=== PATIENT | male | born 1965 | race Caucasian/White ===

== ENCOUNTER 2018-04-04 03:38 | Observation (INO) | payer OTHER ==
[~2018-04-04] VITALS: Ht 172.7 cm; Wt 86.9 kg
[~2018-04-04 03:38] MED LIST: DICY10CA40 PO; DOCU-144 PO; HYDR10FO PR
[2018-04-04] MEDS ORDERED: NITROGLYCERIN 2% 1 GM OINT PKT TD STA (04:04)
[2018-04-04] MEDS ORDERED: ASPIRIN 325 MG TAB PO STA (04:04)
[2018-04-04] MEDS ORDERED: NITROGLYCERIN (SL) 0.4 MG TAB SL PRN ×2 (04:30→23:00)
--- NOTE | 2018-04-04 04:39 | ERD ---
ER Documentation Chief Complaint Chief Complaint BIB RA for "flushed" sensation/SOB/throat pain s/p taking flomax HPI This is a 53-year-old male with a history of BPH who is here for multiple complaints including chest pain. The patient states he woke up to use the restroom to urinate and when he got into the bathroom he became suddenly dizzy, diaphoretic, short of breath with chest pain and had a choking sensation in his throat. His son heard him coughing and came to check on him and found him in the bathroom coughing with difficulty breathing and he seem like he was in panic. The patient says he is never had a panic attack before and is not over stressed. He says he has some medical problems. He said he saw his primary care physician this morning and was given a prescription of Flomax, he took the first dose this evening at 9 PM. He says currently he is having some chest pressure ROS All systems reviewed and are negative except as per history of present illness. Medications Home Meds Active Scripts Dicyclomine HCl (Dicyclomine HCl) 10 Mg Capsule, 10 MG PO QID, #20 CAP Prov:SAMMY CRAVEN 03/09/16 Hydrocortisone/Pramoxine* (Proctofoam-HC*) 1%-10 Gm Foam, 1 APPLIC WI BID for 7 Days, EA Prov:SAMMY CRAVEN 03/09/16 Docusate Sodium* (Colace*) 100 Mg Capsule, 100 MG PO TID, #30 CAP Prov:SAMMY CRAVEN 03/09/16 Allergies Allergies: Coded Allergies: No Known Allergy (Unverified , 03/09/16) PMhx/Soc Medical and Surgical Hx: pt denies Medical Hx, pt denies Surgical Hx Hx Psychiatric Problems: No Hx Miscellaneous Medical Probl: No Hx Alcohol Use: No Hx Substance Use: No Hx Tobacco Use: No Smoking Status: Never smoker FmHx Family History: No coronary disease Physical Exam Vitals Vital Signs Date Temp Pulse Resp B/P (MAP) Pulse Ox O2 O2 Flow FiO2 Time Delivery Rate 04/04/18 66 18 121/84 Room Air 04:55 (96) 04/04/18 75 17 131/93 98 Room Air 04:12 (106) 04/04/18 97.5 80 16 114/84 99 03:43 (94) Physical Exam Const: Well-developed, well-nourished Head: Atraumatic, normocephalic Eyes: Normal Conjunctiva, PERRLA, EOMI, normal sclera, no nystagmus ENT: Normal External Ears, Nose and Mouth, moist mucus membranes. Neck: Full range of motion. No meningismus, no lymphadenopathy. Resp: Clear to auscultation bilaterally, no wheezing, rhonchi, rales Cardio: Regular rate and rhythm, no murmurs, S1 S2 present Abd: Soft, non tender x 4, non distended. Normal bowel sounds, no guarding or rebound, no pulsitile abdominal masses or bruits Skin: No petechiae or rashes, no ecchymosis , no maculopapular rash Back: No midline or flank tenderness Ext: No cyanosis, or edema, FROM x 4, normal inspection, neurovascularly intact x 4 Neur: Awake and alert, STR 5/5 x 4, sensation intact x 4, no focal findings, cerebellum intact Psych: Normal Mood and Affect Result Diagram: 04/04/1842004/04/181 Results 24 hrs Laboratory Tests Test 04/04/18 04:21 White Blood Count 7.3 10^3/ul Red Blood Count 4.82 10^6/ul Hemoglobin 14.0 g/dl Hematocrit 42.6 % Mean Corpuscular Volume 88.4 fl Mean Corpuscular Hemoglobin 29.0 pg Mean Corpuscular Hemoglobin Concent 32.9 g/dl Red Cell Distribution Width 13.5 % Platelet Count 151 10^3/UL Mean Platelet Volume 11.9 fl Immature Granulocytes % 0.100 % Neutrophils % 53.1 % Lymphocytes % 30.3 % Monocytes % 12.8 % Eosinophils % 2.7 % Basophils % 1.0 % Nucleated Red Blood Cells % 0.0 /100WBC Immature Granulocytes # 0.010 10^3/ul Neutrophils # 3.9 10^3/ul Lymphocytes # 2.2 10^3/ul Monocytes # 0.9 10^3/ul Eosinophils # 0.2 10^3/ul Basophils # 0.1 10^3/ul Nucleated Red Blood Cells # 0.0 10^3/ul Sodium Level 141 mmol/L Potassium Level 4.0 mmol/L Chloride Level 109 mmol/L Carbon Dioxide Level 25 mmol/L Anion Gap 7 Blood Urea Nitrogen 22 mg/dl Creatinine 1.14 mg/dl Est Glomerular Filtrat Rate mL/min > 60 mL/min Glucose Level 106 mg/dl Calcium Level 9.3 mg/dl Troponin I < 0.012 ng/ml Current Medications Medications Dose Sig/Aurora Start Time Status Last (Trade) Ordered Route PRN Stop Time Admin Dose Reason Admin Aspirin 325 mg ONCE STAT 04/04/18 DC 04/04/18 (Aspirin) PO 04:04 04/04/18 04:52 04:06 1 inch ONCE STAT 04/04/18 DC 04/04/18 Nitroglycerin TD 04:04 04/04/18 04:52 04:06 (Nitroglyceri n 2% Oint) 1 tab Q5M UP TO 3 04/04/18 Nitroglycerin DOSES PRN 04:30 SL CHEST (Nitroglyceri PAIN n (Sl Tab) 0.4 Mg) Procedures/MDM EKG: Rate/Rhythm: Normal Sinus Rhythm,NL intervals QRS, ST, QT: NORMAL WI, QRS, QT] Impression: NORMAL EKG MR #: [id number] DOS: 04/04/18 0404 Ordering MD: CHRISTOPHER BOLANOS DO Location: E/R Room/Bed: PROCEDURE: Chest x-ray CLINICAL INDICATION: Chest pain. TECHNIQUE: VIEWS: 1 COMPARISON: CR CHEST 11/07/2016 FINDINGS: SUPPORT DEVICES: None. CARDIAC AND MEDIASTINAL SILHOUETTES: Stable cardiomegaly. . Prominent mediasti num with rightward displacement of the trachea. Considerations include mediastinal mass including retrosternal thyroid, lymphadenopathy, and ectatic great vessel. Consider CT chest examination. LUNGS AND PLEURAL SPACE: Appear clear . PNEUMOTHORAX: None. OSSEOUS STRUCTURES: Unremarkable. IMPRESSION: 1. Prominent mediastinum with rightward displacement of the trachea. Further evaluation with CT chest recommended. 2. Stable cardiomegaly. RPTAT: HRSR Physician Eduarda Date Time Electronically viewed and signed by Physician Eduarda on 04/04/2018 04:36 RR/ CC: CHRISTOPHER BOLANOS DO [id number] Patient is possibly having an anxiety reaction/drug reaction to Flomax. He seemed calm in the ER when he was having chest pressure that was relieved by sublingual nitro., He also has a prominent mediastinum with tracheal deviation and I have ordered a CAT scan of the chest with IV contrast to rule out PE as well as chest mass/lymphoma. Cardiac Admit MDM: Patient's symptoms are concerning for cardiac cause will require inpatient workup and continuous monitoring. Further w/u for ischemia, arrhythmia, PE or dissection will be deferred to the inpatient team. Departure Diagnosis: Primary Impression: Chest pain Chest pain type: unspecified Qualified Codes: R07.9 - Chest pain, unspecified Condition: Stable CHRISTOPHER BOLANOS DO Apr 04, 2018 04:39
[2018-04-04] MEDS ORDERED: TAMS0.4C2 PO (05:58)
[2018-04-04] MEDS ORDERED: SOD CHLORIDE 0.9% 100 ML ONE (05:59)
[2018-04-04] MEDS ORDERED: IOHEXOL 300MG/ML 150 ML BTL ONE (05:59)
[2018-04-04] MEDS ORDERED: ONDANSETRON 4 MG INJ IV PRN ×2 (06:00→23:00)
[2018-04-04] MEDS ORDERED: ACETAMINOPHEN 325 MG TAB PO PRN ×2 (06:00→23:00)
[2018-04-04] MEDS: DEXTROSE 5%-0.45% NACL 1,000 ML IV SCH (13:57)
--- NOTE | 2018-04-04 14:04 | CONS ---
Date/Time of Note Date/Time of Note DATE: 04/04/18 TIME: 14:01 Assessment/Plan Assessment/Plan Hospital Course #Enlarged Thyroid Gland -will repeat thyroid ultrasound and obtain records from summer clerk regarding initial bx and radiology from before -will need to compare the size of the thyroid gland to ensure it has not grown in size -if it has, or there are any new suspicious lesions , will pursue a biopsy -this workup can be done as an out patient. I have given the patient my card to follow up #Chest pain -negative troponin -management per primary team Result Diagram: 04/04/18 0421 04/04/18 0421 Results 24hrs Laboratory Tests Test 04/04/18 04:21 White Blood Count 7.3 Red Blood Count 4.82 Hemoglobin 14.0 Hematocrit 42.6 Mean Corpuscular Volume 88.4 Mean Corpuscular Hemoglobin 29.0 Mean Corpuscular Hemoglobin Concent 32.9 Red Cell Distribution Width 13.5 Platelet Count 151 Mean Platelet Volume 11.9 #H Immature Granulocytes % 0.100 Neutrophils % 53.1 Lymphocytes % 30.3 Monocytes % 12.8 H Eosinophils % 2.7 Basophils % 1.0 Nucleated Red Blood Cells % 0.0 Immature Granulocytes # 0.010 Neutrophils # 3.9 Lymphocytes # 2.2 Monocytes # 0.9 Eosinophils # 0.2 Basophils # 0.1 Nucleated Red Blood Cells # 0.0 Sodium Level 141 Potassium Level 4.0 Chloride Level 109 Carbon Dioxide Level 25 Anion Gap 7 Blood Urea Nitrogen 22 H Creatinine 1.14 Est Glomerular Filtrat Rate mL/min > 60 Glucose Level 106 Calcium Level 9.3 Troponin I < 0.012 Consultation Date/Type/Reason Admit Date/Time 04/04/17 Date of Consultation: Apr 04, 2018 Type of Consult oncology Reason for Consultation thyroid mass Requesting Provider: ACE COSTELLO MD Hx of Present Illness 53 yo male presented to [facility] ED on 04/04/17 with complaints of chest pain and an episode of dizziness, diaphoresis and shortness of breath. Pt was found by son on the floor having a panic attack. Given the chest pain patient had a CT Chest done which revealed an enlarged left thyroid gland measuring 6.2 cm with retrosternal extension into the superior mediastinum and associated rightward deviation of upper trachea. A calcified lesion in the left lobe of the thyroid measuring 3.3 cm is noted. Cardiomegaly is also noted. We have been consulted for further workup of this enlarged thyroid gland. Further history reveals patient has had an enlarged thyroid gland for years and had a biopsy done at [facility] years ago, that was benign. Constitutional: diaphoresis, poor po Eyes: no complaints ENT: no complaints Respiratory: pain, shortness of breath Cardiovascular: chest pain, lightheadedness Gastrointestinal: no complaints Genitourinary: no complaints Musculoskeletal: no complaints Neurologic: no complaints Past Medical History none Medications Current Medications Nitroglycerin (Nitroglycerin (Sl Tab) 0.4 Mg) 1 tab Q5M UP TO 3 DOSES PRN SL CHEST PAIN; Start 04/04/18 at 04:30 Ondansetron HCl (Zofran Inj) 4 mg ER BRIDGE PRN IV NAUSEA AND/OR VOMITING; Start 04/04/18 at 06:00; Stop 04/05/18 at 05:59 Acetaminophen (Tylenol Tab) 650 mg ER BRIDGE PRN PO MILD PAIN(1-3)OR ELEVATED TEMP; Start 04/04/18 at 06:00; Stop 04/05/18 at 05:59 Dextrose/Sodium Chloride 1,000 ml @ 60 mls/hr [id number] IV Last administered on 04/04/18at 13:57; Admin Dose 60 MLS/HR; Start 04/04/18 at 12:00 Allergies: Coded Allergies: No Known Allergy (Unverified , 04/04/18) Family History Significant Family History: no pertinent family hx Social History Alcohol Use: none Smoking Status: Never smoker Drug Use: none Exam/Review of Systems Vital Signs Vitals Vital Signs Date Temp Pulse Resp B/P (MAP) Pulse Ox O2 O2 Flow FiO2 Time Delivery Rate 04/04/18 97.9 66 20 124/84 98 Room Air 11:25 (97) Exam Constitutional: alert, oriented Psych: no complaints Head: normocephalic Eyes: nl conjunctiva ENMT: nl external ears & nose Neck: supple Respiratory: clear to auscultation Cardiovascular: regular rate and rhythm Gastrointestinal: soft Musculoskeletal: nl extremities to inspection Extremities: normal pulses Medications Medications Current Medications Nitroglycerin (Nitroglycerin (Sl Tab) 0.4 Mg) 1 tab Q5M UP TO 3 DOSES PRN SL CHEST PAIN; Start 04/04/18 at 04:30 Ondansetron HCl (Zofran Inj) 4 mg ER BRIDGE PRN IV NAUSEA AND/OR VOMITING; Start 04/04/18 at 06:00; Stop 04/05/18 at 05:59 Acetaminophen (Tylenol Tab) 650 mg ER BRIDGE PRN PO MILD PAIN(1-3)OR ELEVATED TEMP; Start 04/04/18 at 06:00; Stop 04/05/18 at 05:59 Dextrose/Sodium Chloride 1,000 ml @ 60 mls/hr [id number] IV Last administered on 04/04/18at 13:57; Admin Dose 60 MLS/HR; Start 04/04/18 at 12:00 FUNMI SHIN M.D. Apr 04, 2018 14:04
--- NOTE | 2018-04-04 14:54 | HP ---
Date/Time of Note Date/Time of Note DATE: 04/04/18 TIME: 11:24 Assessment/Plan Lines/Catheters IV Catheter Type (from Nrs): Saline Lock Assessment/Plan Assessment/Plan - Acute Chest pain r/o Acute Coronary Syndrome - cardiology consult - Per CT - Left Thyroid mass; Enlarged heterogeneous left thyroid with retrosternal extension and rightward displacement of the upper trachea. The left lobe contains a partially calcified mass measuring 3.3 x 1.5 cm for which further evaluation with ultrasound is recommended. - Endo consult - Oncology consult Dw Dr Poon Result Diagram: 04/04/1842004/04/181 Results 24hrs Laboratory Tests Test 04/04/18 04:21 White Blood Count 7.3 Red Blood Count 4.82 Hemoglobin 14.0 Hematocrit 42.6 Mean Corpuscular Volume 88.4 Mean Corpuscular Hemoglobin 29.0 Mean Corpuscular Hemoglobin Concent 32.9 Red Cell Distribution Width 13.5 Platelet Count 151 Mean Platelet Volume 11.9 #H Immature Granulocytes % 0.100 Neutrophils % 53.1 Lymphocytes % 30.3 Monocytes % 12.8 H Eosinophils % 2.7 Basophils % 1.0 Nucleated Red Blood Cells % 0.0 Immature Granulocytes # 0.010 Neutrophils # 3.9 Lymphocytes # 2.2 Monocytes # 0.9 Eosinophils # 0.2 Basophils # 0.1 Nucleated Red Blood Cells # 0.0 Sodium Level 141 Potassium Level 4.0 Chloride Level 109 Carbon Dioxide Level 25 Anion Gap 7 Blood Urea Nitrogen 22 H Creatinine 1.14 Est Glomerular Filtrat Rate mL/min > 60 Glucose Level 106 Calcium Level 9.3 Troponin I < 0.012 HPI/ROS Admit Date/Time Admit Date/Time Hx of Present Illness BIB RA for "flushed" sensation/SOB/throat pain s/p taking flomax HPI This is a 53-year-old male with a history of BPH who is here for multiple complaints including chest pain. The patient states he woke up to use the restroom to urinate and when he got into the bathroom he became suddenly dizzy, diaphoretic, short of breath with chest pain and had a choking sensation in his throat. His son heard him coughing and came to check on him and found him in the bathroom coughing with difficulty breathing and he seem like he was in panic. The patient says he is never had a panic attack before and is not over stressed. He says he has some medical problems. He said he saw his primary care physician this morning and was given a prescription of Flomax, he took the first dose this evening at 9 PM. He says currently he is having some chest pressure ROS All systems reviewed and are negative except as per history of present illness. Medications Home Meds Active Scripts Dicyclomine HCl (Dicyclomine HCl) 10 Mg Capsule, 10 MG PO QID, #20 CAP Prov:SAMMY CRAVEN 03/09/16 Hydrocortisone/Pramoxine* (Proctofoam-HC*) 1%-10 Gm Foam, 1 APPLIC [place] BID for 7 Days, EA Prov:SAMMY CRAVEN 03/09/16 Docusate Sodium* (Colace*) 100 Mg Capsule, 100 MG PO TID, #30 CAP Prov:SAMMY CRAVEN 03/09/16 Allergies Allergies: Coded Allergies: No Known Allergy (Unverified , 03/09/16) PMhx/Soc Medical and Surgical Hx: pt denies Medical Hx, pt denies Surgical Hx Hx Psychiatric Problems: No Hx Miscellaneous Medical Probl: No Hx Alcohol Use: No Hx Substance Use: No Hx Tobacco Use: No Smoking Status: Never smoker FmHx Family History: No coronary disease PMH/Family/Social Past Medical History Medications Current Medications Nitroglycerin (Nitroglycerin (Sl Tab) 0.4 Mg) 1 tab Q5M UP TO 3 DOSES PRN SL CHEST PAIN; Start 04/04/18 at 04:30 Ondansetron HCl (Zofran Inj) 4 mg ER BRIDGE PRN IV NAUSEA AND/OR VOMITING; Start 04/04/18 at 06:00; Stop 04/05/18 at 05:59 Acetaminophen (Tylenol Tab) 650 mg ER BRIDGE PRN PO MILD PAIN(1-3)OR ELEVATED TEMP; Start 04/04/18 at 06:00; Stop 04/05/18 at 05:59 Coded Allergies: No Known Allergy (Unverified , 04/04/18) Social History Smoking Status: Never smoker Exam/Review of Systems Vital Signs Vitals Vital Signs Date Temp Pulse Resp B/P (MAP) Pulse Ox O2 O2 Flow FiO2 Time Delivery Rate 04/04/18 97.9 66 18 114/82 98 Room Air 11:11 (93) FEDE JAY Apr 04, 2018 11:34
[2018-04-04 16:06] VITALS: BP 126/75; PULSE 66; RESP 18
[2018-04-04 16:12] VITALS: Ht 172.7 cm; Wt 86.9 kg
[2018-04-04 16:26] VITALS: PULSE 91
--- NOTE | 2018-04-04 18:31 | NUR ---
Eoss New admit for chest pain and anxiety. Pt admit from Er, came in w/ children. Pt is a/a/ox4, ambulatory w/stable gait. Denies c/o pain or any discomfort upon admission in the floor, no sob or distress noted. Pt was seen by Dr. Soliz, Dr. beach, and Dr. Cabrales. Pt refused photos to be taken of heels and sacral, sacral and heels are intact. Family at the bedside. pt updated of plan of care. pt and family verbalized understanding of the given updates. Call light within reach, bed locked and low. Will endorse accordingly
[2018-04-04 19:40] VITALS: BP 122/78; PULSE 79; RESP 19
[2018-04-04 20:00] VITALS: PULSE 80
[2018-04-04 23:35] VITALS: BP 121/71; PULSE 77; RESP 18
--- NOTE | 2018-04-04 23:45 | CONS ---
DATE OF ADMISSION: 04/04/2018 DATE OF CONSULTATION: 04/04/2018 REASON FOR CONSULTATION: Chest pain, assess for acute coronary syndrome. REQUESTING PHYSICIAN: Ace Poon MD HISTORY OF PRESENT ILLNESS: Mr. Rosen is a 53-year-old male with history of recently diagnosed BP H, on Flomax, who presented with complaints of substernal chest pain associated with shortness of suzanne ath. The patient states chest pain was of onset in the evening after taking his first dose of Flomax described as a pressure to squeezing-like sensation occurring at rest with associated shortness of b reath without radiation. Upon arrival, temperature of 97.5, blood pressure 140/84, pulse 80, respira tory rate 16, satting 99%. The patient's labs revealed white count 7.3, hemoglobin of 14.0, platelet count 151. Sodium 141, potassium 4.0, creatinine 1.1, BUN 22. Troponin negative. The patient unde rwent a chest x-ray revealing prominent mediastinum with rightward displacement of trachea and a CTA of the chest which revealed evidence of pulmonary embolus and large heterogeneous left thyroid retros ternal extension and rightward displacement of trachea, left lobe containing partially calcified mass , cardiomegaly. The patient's electrocardiogram revealed normal sinus rhythm, rate of 74, normal axi s, normal intervals, isolated T wave flattening, lead III. The patient subsequently has been admitte d to the floor and since admitted to floor, the patient has ongoing chest pain. PAST MEDICAL HISTORY: As above in HPI. MEDICATIONS CURRENTLY IN HOSPITAL: 1. IV fluid replacement at 60 mL an hour. 2. Sublingual nitroglycerin p.r.n. ALLERGIES: NO KNOWN DRUG ALLERGIES. SOCIAL HISTORY: No current tobacco, quit x7 years. Social EtOH. No illicit drug use. FAMILY HISTORY: No history of sudden cardiac or early CAD. REVIEW OF SYSTEMS: As above in HPI. CONSTITUTIONAL: No fevers, chills. PULMONARY: No current shortness of breath. CARDIOVASCULAR: No current chest pain, but chest pain on admit. GASTROINTESTINAL: No vomiting. GENITOURINARY: BPH. PSYCHIATRIC: No documented psych history. NEUROLOGIC: No documented history of CVA. PHYSICAL EXAMINATION VITAL SIGNS: Temperature 97.8, blood pressure most recently 126/75, pulse 66, respiratory rate 18, s atting 96%. GENERAL: The patient is alert, awake, in no acute distress. NECK: JVP approximately 8 cm of water. Mild enlargement of thyroid gland. CHEST: Fair air movement throughout. HEART: Regular rate and rhythm. Normal S1, S2, 1/6 systolic murmur, nondisplaced PMI. ABDOMEN: Positive bowel sounds, soft. EXTREMITIES: No significant pitting edema, 1+ pulses bilateral posterior tibial. LABORATORY DATA: As above in HPI. No further labs for my review at this time. IMAGING STUDIES: As above in HPI. No further imaging studies for my review at this time. ECG: As above in HPI. No further electrocardiograms for my review at this time. IMPRESSION: 1. Chest pain, assess for acute coronary syndrome. 2. Abnormal echocardiogram, assess for acute coronary syndrome, with isolated T-wave flattening in i n lead III. 3. Benign prostatic hypertrophy. RECOMMENDATIONS: 1. At this time, would maintain patient on telemetry monitoring to follow rhythm and rates closely. 2. Complete the patient's rule out for myocardial infarction to ensure the patient's constellation o f symptoms not resulted in acute coronary syndrome such as acute myocardial infarction. 3. Check a 2D echo for this patient's ejection fraction, wall motion, rule out any major valvular ab normalities. 4. Give patient's sublingual nitroglycerin for recurrent episodes of chest pain. 5. Check a fasting lipid panel for general risk stratification and initiate lipid medication as nece ssary. 6. We will place patient on a baby aspirin for prophylaxis against cardiovascular events. 7. Ongoing evaluation of the patient's possible thyroid mass with possible need for further evaluati on and intervention. Thank you for allowing me to take part in the care of this patient. I will continue to follow very c losely with you with further recommendations to be made as the patient progresses through his [employer] clinical course. Dictated By: SALLY CEDILLO/ALICIA Conf#: [id number] DID#: [id number] CC: ACE POON MD;*EndCC*
[2018-04-05] VITALS (9 sets, daily range): BP systolic 117–132; BP diastolic 66–92; PULSE 62–81; RESP 16–19
[2018-04-05] MEDS: DEXTROSE 5%-0.45% NACL 1,000 ML IV SCH (04:58)
--- NOTE | 2018-04-05 06:30 | NUR ---
NO SIGNIFICANT CHANGES THROUGHOUT THE SHIFT. NO EPISODES OF ANY DISTRESS. DENIES ANY CP. VS REMAINS STABLE. ALL NEEDS ATTENDED. WILL ENDORSE TO AM SHIFT FOR CONTINUITY OF CARE.
[2018-04-05] MEDS ORDERED: ASPIRIN 81 MG TAB PO SCH (09:00)
--- NOTE | 2018-04-05 12:59 | CONS ---
Date/Time of Note Date/Time of Note DATE: 04/05/18 TIME: 12:58 Assessment/Plan Assessment/Plan Assessment/Plan 1. Chest pain, assess for acute coronary syndrome - NO CP - feels much better now. 2. Abnormal echocardiogram, assess for acute coronary syndrome, with isolated T-wave flattening in in lead III - ECHO to follow. 3. Benign prostatic hypertrophy - con't Rx. 4. Thyroid mass - defer to primary team. Result Diagram: 04/04/1842004/04/18 0421 Results 24hrs Laboratory Tests Test 04/05/18 00:41 04/05/18 05:35 04/05/18 12:02 Troponin I 0.014 0.015 < 0.012 Triglycerides Level 134 Cholesterol Level 178 LDL Cholesterol, Calculated 125 HDL Cholesterol 26 L Cholesterol/HDL Ratio 6.8 Consultation Date/Type/Reason Admit Date/Time Apr 04, 2018 at 05:44 Initial Consult Date 04/04/18 Requesting Provider: ACE COSTELLO MD 24 HR Interval Summary Free Text/Dictation NO acute events - pt feels well now - no CP noted ROS: No fever, no chills, no nausea, no vomiting, no diarrhea/constipation No recent weight changes No chest pain, no PND, no orthopnea No dizziness, blurred vision No thirst, no heat or cold intolerance Exam/Review of Systems Vital Signs Vitals Vital Signs Date Temp Pulse Resp B/P (MAP) Pulse Ox O2 O2 Flow FiO2 Time Delivery Rate 04/05/18 73 12:00 04/05/18 98.0 16 132/89 97 11:53 (103) 04/04/18 Room Air 15:30 Intake and Output 04/04/18 04/04/18 04/05/18 1515:00 23:00 07:00 IntakeIntake Total 240 ml BalanceBalance 240 ml Exam General: WN/WD/NAD, AOx 3 HEENT: Unicetric/atraumatic/EOMI (follow commands) NECK: JVD elevated, no thyromegaly Lymph: no lymphadenopathy HEART: regular with no S3, II/ systolic murmur at apex LUNGS: Coarse sounds ABD: soft, NT, ND, +BS : Intact Neuro: non focal SKIN: chronic changes EXT: trace edema Medications Medications Current Medications Dextrose/Sodium Chloride 1,000 ml @ 60 mls/hr [id number] IV Last administered on 04/05/18at 04:58; Admin Dose 60 MLS/HR; Start 04/04/18 at 12:00 Aspirin (Aspirin) 81 mg DAILY PO Last administered on 04/05/18at 09:31; Admin Dose 81 MG; Start 04/05/18 at 09:00 Nitroglycerin (Nitroglycerin (Sl Tab) 0.4 Mg) 1 tab Q5M PRN SL ANGINA; Start 04/04/18 at 23:00 Acetaminophen (Tylenol Tab) 650 mg Q4H PRN PO MILD PAIN(1-3)OR ELEVATED TEMP Last administered on 04/05/18at 05:05; Admin Dose 650 MG; Start 04/04/18 at 23:00 Ondansetron HCl (Zofran Inj) 4 mg Q6H PRN IV NAUSEA AND/OR VOMITING; Start 04/04/18 at 23:00 FLOWER CALDERON MD Apr 05, 2018 12:59
--- NOTE | 2018-04-05 13:48 | RADRPT ---
Echocardiogram Report Patient Name: RAFIA NARVAEZ Gender: Male Date: 1965 Study Date: 05-Apr-2018 Patrol Officer: CARRILLO Location: I Height(Cm): 173 Weight(Kg): 87 BSA: 2.04 Ref. Physician: SALLY JACOBSON Quality: Adequate Procedures: Transthoracic echocardiogram with complete 2D, M-Mode, and doppler examination. Indications: Chest Pain. 2D/M Mode Doppler Measurement Value Normal Ranges Measurement Value Normal Ranges LVIDd 2D 5.1 3.5 - 5.6 cm AV Peak Alexy 1.5 m/sec LVIDs 2D 3.5 2.1 - 4.1 cm AV Peak PG 9.0 mmHg LVPWd 2D 0.9 0.6 - 1.1 cm LVOT Peak Alexy 0.9 m/sec IVSd 2D 1.0 0.6 - 1.1 cm LVOT Peak PG 3.0 mmHg AoR Diam 2D 3.4 2.0 - 3.7 cm MV E Peak Alexy 0.8 m/sec LA/Ao 2D 1 0 - 1 MV A Peak Alexy 0.7 m/sec LA Dimen 2D 3.7 2.3 - 4.0 cm MV E/A 1.2 MV PHT 32.0 msec MV Decel Time 108 msec MV Decel Centre 7 Lat E` Alexy 0.1 m/sec Lateral E/E` 5.3 Med E` Alexy 0.1 m/sec MV E/A 1.2 MV PHT 32.0 msec MVA PHT 6.9 cm2 TR Peak Alexy 1.9 m/sec TR Peak PG 14.0 mmHg PV Peak Alexy 1.1 m/sec PV Peak PG 5.0 mmHg RVSP 17.0 mmHg Findings Left Ventricle: Normal left ventricular systolic function. Normal left ventricular cavity size. Normal left ventricular wall thickness. Ejection fraction is visually estimated at 63 %. Tissue Doppler/Mitral Doppler indices are within normal limits. E/E`=9. Right Ventricle: Normal right ventricular size. Normal right ventricular systolic function. Left Atrium: The left atrium is normal in size. Right Atrium: The right atrium is normal in size. Atrial Septum: Normal atrial septum. Mitral Valve: Normal appearance of the mitral valve. No mitral valve regurgitation is seen. Aortic Valve: No significant aortic stenosis or insufficiency. Normal trileaflet aortic valve structure. Tricuspid Valve: Normal appearance of the tricuspid valve. Estimated peak PA systolic pressure 17 mmHg. There is trace tricuspid regurgitation. Pulmonic Valve: Normal pulmonic valve appearance. There is trace pulmonic regurgitation. Pericardium: Normal pericardium with no significant pericardial effusion. Aorta: Normal aortic root. Sinus of valsalva3.40 cm. IVC: Normal size and normal respiratory collapse consistent with normal right atrial pressure. Pulmonary Artery: Normal pulmonary artery size. Conclusions Normal left ventricular systolic function. Normal left ventricular cavity size. Normal left ventricular wall thickness. Ejection fraction is visually estimated at 63 %. Tissue Doppler/Mitral Doppler indices are within normal limits. E/E`=9. Normal appearance of the mitral valve. No mitral valve regurgitation is seen. Normal appearance of the tricuspid valve. Estimated peak PA systolic pressure 17 mmHg. There is trace tricuspid regurgitation. Electronically Signed By: Raad Kelly 05-Apr-2018 13:48:01 -0800 Patient Name: RAFIA NARVAEZ Study Date: 05-Apr-2018 [id number]
--- NOTE | 2018-04-05 16:26 | PN ---
Date/Time of Note Date/Time of Note DATE: 04/05/18 TIME: 16:22 Assessment/Plan VTE Prophylaxis Risk score (from Nsg)>0 risk: 2 SCD applied (from Nsg): No Lines/Catheters IV Catheter Type (from Nrsg): Peripheral IV Assessment/Plan Assessment/Plan - Chest pain, assess for acute coronary syndrome - - Abnormal echocardiogram, assess for acute coronary syndrome, with isolated T- wave flattening in in lead III - ECHO to follow. - Benign prostatic hypertrophy - con't Rx. - Thyroid mass - defer to primary team. - Acute Chest pain r/o Acute Coronary Syndrome-NO CP ; Troponin neg- feels much better now. 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 The left lobe contains a partially calcified mass measuring 3.3 x 1.5 cm for which further evaluation with ultrasound is recommended. - Endo consult - Oncology consult Dw Dr Poon Result Diagram: 04/04/181 04/04/18 0421 Results 24hrs Laboratory Tests Test 04/05/18 00:41 04/05/18 05:35 04/05/18 12:02 Troponin I 0.014 0.015 < 0.012 Triglycerides Level 134 Cholesterol Level 178 LDL Cholesterol, Calculated 125 HDL Cholesterol 26 L Cholesterol/HDL Ratio 6.8 Exam/Review of Systems Vital Signs Vitals Vital Signs Date Temp Pulse Resp B/P (MAP) Pulse Ox O2 O2 Flow FiO2 Time Delivery Rate 04/05/18 98.1 68 16 125/83 97 15:25 (97) 04/04/18 Room Air 15:30 Intake and Output 04/04/18 04/04/18 04/05/18 1515:00 23:00 07:00 IntakeIntake Total 240 ml BalanceBalance 240 ml Medications Medications Current Medications Dextrose/Sodium Chloride 1,000 ml @ 60 mls/hr [id number] IV Last administered on 04/05/18at 04:58; Admin Dose 60 MLS/HR; Start 04/04/18 at 12:00 Aspirin (Aspirin) 81 mg DAILY PO Last administered on 04/05/18at 09:31; Admin Dose 81 MG; Start 04/05/18 at 09:00 Nitroglycerin (Nitroglycerin (Sl Tab) 0.4 Mg) 1 tab Q5M PRN SL ANGINA; Start 04/04/18 at 23:00 Acetaminophen (Tylenol Tab) 650 mg Q4H PRN PO MILD PAIN(1-3)OR ELEVATED TEMP Last administered on 04/05/18at 05:05; Admin Dose 650 MG; Start 04/04/18 at 23:00 Ondansetron HCl (Zofran Inj) 4 mg Q6H PRN IV NAUSEA AND/OR VOMITING; Start 04/04/18 at 23:00 FEDE JAY Apr 05, 2018 16:26
--- NOTE | 2018-04-05 17:07 | PDOCDIS ---
Discharge Instructions CONDITION [id number] Patient Condition: [id number] Stable HOME CARE INSTRUCTIONS: [id number] Diet Instructions: [id number] Regular ACTIVITY: [id number] Activity Restrictions: [id number] Slowly Increase Activity Rest between Activity Avoid heavy lifting No Sexual Activity Do not operate Machinery Do not operate Power Tool Avoid Heavy Housework [id number] Bathing Restrictions: Ntofk0s Sponge Bath FOLLOW UP/APPOINTMENTS Follow-up Plan - FU with PMD x 1 week - FU with Dr Mayorga as recommended - FU with Dr Cabrales as recommended Patient verbalized understanding discharge instructions dw FEDE Jacobs Apr 05, 2018 17:07
[2018-04-05] MEDS ORDERED: ASPI-831 PO (17:09)
--- NOTE | 2018-04-05 18:58 | NUR ---
Patient discharged via wheelchair in stable condition. No episodes of chest pain or SOB during shift. Vitals: BP134/83, HR 69, O2 sat 99% on room air, temp 98.6. AAOx4, ambulatory with steady gait. Discharge instructions provided and patient and son verbalized understanding. Dr. Buitrago's and Dr. Mayorga's telephone and address provided to patient. Prescription given to patient. Tele monitor and IV removed. All belongings returned to patient.
[2018-04-05] MEDS ORDERED: TAMSULOSIN (SR) 0.4 MG CAP PO SCH (21:00)
--- NOTE | 2018-04-06 21:22 | RADRPT ---
Vent Rate: 71 bpm RR Interval: 0 msec SC Interval: 144 msec QRS Duration: 100 msec QT Interval: 364 msec QTC Interval: 395 msec P-R-T [place]: 44 - -4 - 53 degrees Normal sinus rhythm Normal ECG Electronically Signed By: Ricardo Linder [id number]
== END 2018-04-05 19:05 | disposition home or self-care (01) ==
LOC: E/R 03:38 → 6WM 05:44
PROVIDERS: ADMIT Internal Medicine; ATTEND Internal Medicine
DX: R07.9 Chest pain, unspecified (principal); R94.31 Abnormal electrocardiogram [ECG] [EKG]; N40.0 Benign prostatic hyperplasia without lower urinary tract symptoms
CPT/HCPCS: 36415; 71045; 71275; 76536; 80048; 80061; 84484; 85025; 93005; 93306; J7042; Q9967; Z7500; Z7502; Z7610; G0378